=== PATIENT | male | born 1950 | race Caucasian/White ===

== ENCOUNTER 2019-04-11 18:00 | Emergency (ER) | payer MEDICARE, MEDICAID ==
[2019-04-11] MEDS ORDERED: OXYCODONE-ACETAMINOPHEN 5-325 MG TABLET PO ONE (19:19)
--- NOTE | 2019-04-11 19:21 | ER Document Report ---
ED Medical Screen (RME) - General Chief Complaint: Hip Injury Stated Complaint: FALL/HIP PAIN Time Seen by Provider: 04/11/19 19:19 Primary Care Provider: JENNIFER HURTADO DO [Primary Care Provider] - Follow up as needed Information source: Patient Notes: Patient states that he tripped over uneven pavement and fell landing on his right hip. Patient complains of pain to the right hip and right femur. Patient denies any loss of consciousness. Patient with abrasions to right knee and right elbow. Patient reports tetanus immunizations up-to-date. I have greeted and performed a rapid initial assessment of this patient. A comprehensive ED assessment and evaluation of the patient, analysis of test results and completion of the medical decision making process will be conducted by additional ED providers. TRAVEL OUTSIDE OF THE [place] IN LAST 30 DAYS: No - Related Data Allergies/Adverse Reactions: No Known Allergies Allergy (Verified 04/12/18 09:50) Past Medical History - Social History Chew tobacco use (# tins/day): No Frequency of alcohol use: Occasional Drug Abuse: None - Past Medical History Cardiac Medical History: Reports: Hx Atrial Fibrillation, Hx Hypertension Pulmonary Medical History: Reports: Hx COPD Denies: Hx Tuberculosis Renal/ Medical History: Denies: Hx Peritoneal Dialysis Musculoskeltal Medical History: Reports Hx Musculoskeletal Deformity, Reports Hx Musculoskeletal Trauma Past Surgical History: Reports: Hx Herniorrhaphy, Hx Orthopedic Surgery - amputated right toe, right shoulder repair. Denies: Hx Pacemaker - Immunizations Hx Diphtheria, Pertussis, Tetanus Vaccination: Yes Physical Exam - Vital signs Vitals: Temp Pulse Resp BP Pulse Ox 97.7 F 77 15 124/77 99 04/11/19 18:06 04/11/19 18:06 04/11/19 18:06 04/11/19 18:06 04/11/19 18:06 - General Notes: Right hip and femur tenderness Course - Vital Signs Vital signs: Temp Pulse Resp BP Pulse Ox 97.7 F 77 15 124/77 99 04/11/19 18:06 04/11/19 18:06 04/11/19 18:06 04/11/19 18:06 04/11/19 18:06 Doctor's Discharge - Discharge Referrals: JENNIFER HURTADO DO [Primary Care Provider] - Follow up as needed
--- NOTE | 2019-04-11 20:14 | RADIOLOGY REPORT (SQ) ---
AP PELVIS AND 2 VIEWS OF RIGHT FEMUR EXAM DATE: 04/11/2019 7:20 PM CDT HISTORY: Fall. Right hip pain. COMPARISON: None. FINDINGS: Generalized osteopenia is present. No acute fracture or dislocation is seen. The joint spaces are preserved. Vascular calcifications are present. IMPRESSION: No acute findings are seen. However, please note that the generalized osteopenia limits evaluation for subtle or nondisplaced fractures. Consider cross-sectional imaging if there is high clinical concern or point tenderness.
[2019-04-11] MEDS ORDERED: FENTANYL CITRATE INJ/PF 100 MCG/2 ML AMPUL IV ONE (21:48)
--- NOTE | 2019-04-11 21:48 | RADIOLOGY REPORT (SQ) ---
EXAM DESCRIPTION: CT PELVIS WITHOUT IV CONTRAST COMPLETED DATE/TME: 04/11/2019 20:41 CLINICAL HISTORY: 68 years, Male, point tenderness R hip pain COMPARISON: None. TECHNIQUE: Noncontrast CT of the pelvis was performed. Coronal and sagittal reformations were created. Images stored on PACS. All CT scanners at this facility use dose modulation, iterative reconstruction, and/or weight based dosing when appropriate to reduce radiation dose to as low as reasonably achievable (ALARA). [facility]: Dose Right [facility]: CareDose [facility]: Dose Right [facility]: Teradose 4D [facility]: [employer] LIMITATIONS: None. FINDINGS: Severe calcifications are noted about the abdominal aorta extending into the proximal iliac vessels. The appendix appears normal. Postsurgical changes are evident about the anterior abdominal wall on image 8 of series 4. Visualized portions of the small and large bowel appear normal in caliber. A few scattered colonic diverticula are evident. The urinary bladder is distended shows no suspicious abnormality. No suspicious lymphadenopathy is evident. Bone windows show irregular sclerotic foci located within both femoral heads, the largest of which is actually located within the left femoral neck measuring 1.4 x 1.5 cm in size. These most likely corresponding to benign bone islands. However, additional area of somewhat serpiginous sclerosis located about the anterior aspect of the femoral head on image 21 of series 303 could indicate focal AVN. Otherwise, there is focal cortical irregularity about the intertrochanteric region of the right femur, best visualized on coronal reformations. No significant displacement is evident. IMPRESSION: Essentially nondisplaced intertrochanteric fracture of the right femur. Sclerotic foci about both femoral heads, most likely indicating benign bone islands. Additional area of serpiginous sclerosis located about the anterior aspect of the left femoral head could indicate AVN. TECHNICAL DOCUMENTATION: Quality ID # 436: Final reports with documentation of one or more dose reduction techniques (e.g., Automated exposure control, adjustment of the mA and/or kV according to patient size, use of iterative reconstruction technique) copyright 2011 [employer]- All Rights Reserved
[2019-04-11] MEDS ORDERED: NORMAL SALINE 1000 ML 1,000 ML IV ONE (21:59)
[2019-04-11 22:12] LABS: ABSOLUTE EOSINOPHILS # (AUTO) 0.2 10^3/uL (0.0-0.6); ABSOLUTE LYMPHOCYTES (AUTO) 1.3 10^3/uL (0.5-4.7); ABSOLUTE MONOCYTES (AUTO) 0.9 10^3/uL (0.1-1.4); ABSOLUTE NEUT (AUTO) 6.4 10^3/uL (1.7-8.2); BASOPHILS % (AUTO) 0.4 % (0-2); EOSINOPHILS % (AUTO) 2.4 % (0-6); HEMATOCRIT 41.3 % (37.9-51.0); HEMOGLOBIN 13.9 g/dL (13.5-17.0); LYMPHOCYTES % (AUTO) 14.4 % (13-45); MEAN CORPUSCULAR HEMOGLOBIN 33.4 pg (27.0-33.4); MEAN CORPUSCULAR HGB CONC 33.7 g/dL (32.0-36.0); MEAN CORPUSCULAR VOLUME 99 fl (80-97); MONOCYTES % (AUTO) 10.6 % (3-13); PLATELET COUNT 138 10^3/uL (150-450); RED BLOOD COUNT 4.16 10^6/uL (4.35-5.55); RED CELL DISTRIBUTION WIDTH 13.9 % (11.5-14.0); SEGMENTED NEUTROPHILS % (AUTO) 72.2 % (42-78); TOTAL CELLS COUNTED % (AUTO) 100 %; WHITE BLOOD COUNT 8.8 10^3/uL (4.0-10.5)
[2019-04-11 22:18] LABS: INTERNATIONAL RATION (INR) 0.95; PROTHROMBIN TIME 12.7 SEC (11.4-15.4)
[2019-04-11 22:19] LABS: PARTIAL THROMBOPLASTIN TIME 29.1 SEC (23.5-35.8)
--- NOTE | 2019-04-11 22:20 | ER Document Report ---
ED Hip Pain/Injury - General Chief Complaint: Hip Injury Stated Complaint: FALL/HIP PAIN Time Seen by Provider: 04/11/19 19:19 Primary Care Provider: JENNIFER HURTADO DO [Primary Care Provider] - Follow up as needed Notes: RME NOTE: Patient states that he tripped over uneven pavement and fell landing on his right hip. Patient complains of pain to the right hip and right femur. Patient denies any loss of consciousness. Patient with abrasions to right knee and right elbow. Patient reports tetanus immunizations up-to-date. My HPI: Patient states he was at a bar with his brother. States his last oral intake was approximately 1600 hrs. and was half a pitcher of beer. States [place] this [place] when he missed a step and fell onto his right hip. Patient states he also fell onto his right elbow and sustained a skin abrasion but is denying any pain in his right elbow at this time. Patient denies hitting his head, neck, loss of consciousness or vomiting. States he has a past medical history of hypertension Takes aspirin and an unknown hypertensive medication on a daily basis. Patient's denying any medical allergies. TRAVEL OUTSIDE OF THE [place] IN LAST 30 DAYS: No - Related Data Allergies/Adverse Reactions: No Known Allergies Allergy (Verified 04/12/18 09:50) Past Medical History - General Information source: Patient - Social History Smoking Status: Current Every Day Smoker Chew tobacco use (# tins/day): No Frequency of alcohol use: Occasional Drug Abuse: None Family History: Reviewed & Not Pertinent Patient has suicidal ideation: No Patient has homicidal ideation: No - Past Medical History Cardiac Medical History: Reports: Hx Atrial Fibrillation, Hx Hypertension Pulmonary Medical History: Reports: Hx COPD Denies: Hx Tuberculosis Renal/ Medical History: Denies: Hx Peritoneal Dialysis Musculoskeletal Medical History: Reports Hx Musculoskeletal Deformity, Reports Hx Musculoskeletal Trauma Past Surgical History: Reports: Hx Herniorrhaphy, Hx Orthopedic Surgery - amputated right toe, right shoulder repair. Denies: Hx Pacemaker - Immunizations Hx Diphtheria, Pertussis, Tetanus Vaccination: Yes Review of Systems - Review of Systems Constitutional: denies: Fever EENT: No symptoms reported Cardiovascular: No symptoms reported Respiratory: No symptoms reported Gastrointestinal: No symptoms reported Genitourinary: No symptoms reported Male Genitourinary: No symptoms reported Musculoskeletal: See HPI Skin: See HPI Hematologic/Lymphatic: No symptoms reported Neurological/Psychological: See HPI Physical Exam - Vital signs Vitals: Temp Pulse Resp BP Pulse Ox 97.7 F 77 15 124/77 99 04/11/19 18:06 04/11/19 18:06 04/11/19 18:06 04/11/19 18:06 04/11/19 18:06 - Notes Notes: GENERAL: Alert, interacts well. No acute distress. HEAD: Normocephalic, atraumatic. EYES: Pupils equal, round, and reactive to light. Extraocular movements intact. ENT: Oral mucosa moist, tongue midline. NECK: Full range of motion. Supple. Trachea midline. LUNGS: Clear to auscultation bilaterally, no wheezes, rales, or rhonchi. No respiratory distress. HEART: Regular rate and rhythm. No murmur ABDOMEN: Soft, non-tender. Non-distended. Bowel sounds present in all 4 quadrants. EXTREMITIES: Moves all 4 extremities spontaneously. No edema, normal radial and dorsalis pedis pulses bilaterally. No cyanosis. No internal, external rotation of the right lower extremity noted, no shortening of the right lower extremity noted. Pain on palpation right posterior hip. BACK: no cervical, thoracic, lumbar midline tenderness. No saddle anesthesia, normal distal neurovascular exam. NEUROLOGICAL: Alert and oriented x3. Normal speech. cranial nerves II through XII grossly intact. PSYCH: Normal affect, normal mood. SKIN: Warm, dry, normal turgor. Superficial skin abrasion noted right elbow. No bony tenderness noted. Course - Re-evaluation Re-evalutation: Femur X-Ray 04/11/19 19:19 IMPRESSION: No acute findings are seen. However, please note that the generalized osteopenia limits evaluation for subtle or nondisplaced fractures. Consider cross-sectional imaging if there is high clinical concern or point tenderness. Pelvis X-Ray 04/11/19 19:20 IMPRESSION: No acute findings are seen. However, please note that the generalized osteopenia limits evaluation for subtle or nondisplaced fractures. Consider cross-sectional imaging if there is high clinical concern or point tenderness. Pelvis CT 04/11/19 20:41 IMPRESSION: Essentially nondisplaced intertrochanteric fracture of the right femur. Sclerotic foci about both femoral heads, most likely indicating benign bone islands. Additional area of serpiginous sclerosis located about the anterior aspect of the left femoral head could indicate AVN. TECHNICAL DOCUMENTATION: Quality ID # 436: Final reports with documentation of one or more dose reduction techniques (e.g., Automated exposure control, adjustment of the mA and/or kV according to patient size, use of iterative reconstruction technique) copyright 2011 [employer]- All Rights Reserved 04/11/19 22:19 Patient has paged to [facility] for transfer of this patient. 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 04/11/19 23:09 Spoke with ED physician Dr. Cordoba at [facility] who will accept the patient to the emergency department. 04/12/19 00:48 Transport is at bedside. Patient voices that his pain has returned. Morphine ordered and administered. Blood pressure 155/97, respiratory rate 14 with an SPO2 of 95 on room air, heart rate 90, temperature 97.6. - Vital Signs Vital signs: Temp Pulse Resp BP Pulse Ox 98.0 F 66 20 150/82 H 96 04/11/19 20:54 04/11/19 20:54 04/11/19 20:54 04/11/19 20:54 04/11/19 20:54 - Laboratory Result Diagrams: 04/11/19 22:00 04/11/19 22:00 Laboratory results interpreted by me: 04/11/19 04/11/19 22:00 22:00 RBC 4.16 L MCV 99 H Plt Count 138 L Sodium 131.3 L Chloride 97 L Discharge - Discharge Clinical Impression: Fracture, intertrochanteric, right femur Qualifiers: Encounter type: initial encounter Fracture type: closed Fracture alignment: nondisplaced Qualified Code(s): S72.144A - Nondisplaced intertrochanteric fracture of right femur, initial encounter for closed fracture Condition: Stable Disposition: [facility] Admitting Provider: Dr. Peggy Cordoba Referrals: JENNIFER HURTADO DO [Primary Care Provider] - Follow up as needed
[2019-04-11 22:28] LABS: ALBUMIN 4.1 g/dL (3.5-5.0); ALCOHOL 94 mg/dL (NONE DETECTED); ALKALINE PHOSPHATASE 51 U/L (38-126); ANION GAP 11 (5-19); ASPARTATE AMINO TRANSFERASE 22 U/L (17-59); BILIRUBIN,DIRECT 0.2 mg/dL (0.0-0.4); BILIRUBIN,TOTAL 0.5 mg/dL (0.2-1.3); BLOOD UREA NITROGEN 18 mg/dL (7-20); CALCIUM 9.5 mg/dL (8.4-10.2); CARBON DIOXIDE 23 mmol/L (22-30); CHLORIDE 97 mmol/L (98-107); GLUCOSE 88 mg/dL (75-110); POTASSIUM 4.5 mmol/L (3.6-5.0)
[2019-04-12] MEDS ORDERED: MORPHINE SULFATE 10 MG/ML INJ IV ONE (00:42)
[2019-04-12 00:54] VITALS: BP 155/97
== END 2019-04-12 01:17 ==
LOC: ER 18:00
DX: S72.144A Nondisplaced intertrochanteric fracture of right femur, initial encounter for closed fracture (principal); S50.311A Abrasion of right elbow, initial encounter; M25.551 Pain in right hip; M79.604 Pain in right leg; W10.9XXA Fall (on) (from) unspecified stairs and steps, initial encounter; Y92.89 Other specified places as the place of occurrence of the external cause; I10 Essential (primary) hypertension; F17.200 Nicotine dependence, unspecified, uncomplicated; J44.9 Chronic obstructive pulmonary disease, unspecified
CPT/HCPCS: 99284; 96361; 96374; 96375; 36415; 80307; 85025; 85610; 85730; 80053; 73552; 72170; 72192; J3010; J2270; A9270; J7030